=== PATIENT | male | born 1965 | race Hispanic/Latino ===

== ENCOUNTER 2024-09-17 06:32 | Day surgery (SDC) | payer BC, SELFPAY ==
[2024-09-03 10:34] VITALS: BMI 24.3
[2024-09-17] VITALS (11 sets, daily range): BP systolic 100–120; BP diastolic 54–83; BMI 24.3
--- NOTE | 2024-09-17 06:58 | HP.FOC2 ---
Focused History & Physical
Chief Complaint
HPI:
Chief Complaint: Right inguinal hernia
HPI / Indication for Planned Procedure: Patient is a 59-year-old male previously known to myself status post laparoscopic left inguinal hernia repair with mesh, open umbilical hernia repair with mesh in 2017. He has recovered well from these
operative procedures. Recently began taking note of intermittent swelling in the right inguinal region. Awareness of the hernia being present but no significant pain or discomfort. No associated GI or symptoms.
Relevant Past Medical History: Other (Prediabetic, hyperlipidemia, vitamin D deficiency)
Relevant Social History: Negative
Relevant Family History: Negative
Relevant Past Surgical History: Positive for (Cataracts, left wrist arthroplasty, laparoscopic left inguinal hernia repair with mesh/open umbilical hernia repair with mesh 2017)
Review of Systems
Review of Pertinent Systems: All Systems Negative
Medication
See Medication form for detailed medications: Yes
Medication List (including Herbals & OTC):
simvastatin 40 mg tablet 40 mg PO HS 09/10/24
Medications Reviewed: Yes
Allergies and Reactions
Patient has Allergies: No
Noted Allergies and Reactions:
Allergy/AdvReac Type Severity Reaction Status Date / Time
No Known Allergies Allergy Unverified 09/10/24 08:40
Pertinent Physical Exam
All Other Systems: Negative
Head/Neck: Normal
Lungs: Normal
Heart: Normal
Abdomen: Other (Reducible right inguinal hernia)
Extremities: Normal
Neurological: Normal
Diagnosis / Assessment
59-year-old male presenting for scheduled operative correction symptomatic right inguinal hernia
Plan / Procedure
Robotic assisted laparoscopic repair right inguinal hernia with mesh
Anesthesia/Sedation to be done by Anesthesia Provider: Yes
--- NOTE | 2024-09-17 07:00 | W.SUR.PREOP ---
Pre-Operative Surgical Note
-
I have examined this patient prior to the performance of the scheduled procedure.
The patient's condition is unchanged from the time of the current History and
Physical and the patient is able to undergo the scheduled procedure.
[2024-09-17] MEDS: TYLENOL 1000 MG PO (08:17)
[2024-09-17] MEDS: NORMOSOL-R/PLASMALYTE-A 1000 IV (08:18)
--- NOTE | 2024-09-17 10:56 | W.IMMPOSTOP ---
Surgical Immed Post Op Note
-
Primary Surgeon: Igor Cook MD
Assisting Surgeon: Marika Malik PA-C
Pre-op Diagnosis: Right inguinal hernia
Post-op Diagnosis: Right inguinal hernia -direct
Procedure Performed: RAL RUBÉN repair right inguinal hernia with mesh; 3D max large mid weight
Anesthesia Type: GETA +0.25% Marcaine with epi
Specimen / Cultures: None
Estimated Blood Loss: 6 mL
Complications: None immediate
Operative Findings: Previous umbilical herniorrhaphy and left inguinal herniorrhaphy intact and without any adhesions. Right direct inguinal hernia identified and repaired with transabdominal preperitoneal approach. 3D max large mid weight mesh
secured to Raymon's ligament with 2-0 Vicryl stitch x 2. Indirect inguinal location normal, no femoral component, no significant lipoma of cord structures. Peritoneal flap closed with 2-0 Monocryl STRATAFIX spiral. No additional incidental
findings.
The assistance of Marika Malik PA-C was required due to the complexity of the procedure. During the procedure Marika Malik PA-C assisted with port placement, robotic instrumentation and suture material exchanges, and closure of the surgical incision
sites. I was present for the entirety of the operative procedure.
--- NOTE | 2024-09-17 10:58 | OR.RPT ---
Operative Report
Operative Report
Date of operative procedure: 09/17/2024
Primary Surgeon: Igor Cook MD
Assisting Surgeon: Marika Malik PA-C
Pre-op Diagnosis: Right inguinal hernia
Post-op Diagnosis: Right inguinal hernia, direct
Procedure Performed: Robotic assisted laparoscopic RUBÉN repair right inguinal hernia with mesh; 3D max large mid weight mesh
Anesthesia Type: GETA +0.25% Marcaine
Specimen / Cultures: None/none
Estimated Blood Loss: 6 mL
Complications: None immediate
Indications for operative procedure: Patient is a 59-year-old male previously known to myself status post laparoscopic left inguinal hernia repair with mesh, open umbilical hernia repair with mesh in 2017. He has recovered well from these operative
procedures. Recently began taking note of intermittent swelling in the right inguinal region. Awareness of the hernia being present but no significant pain or discomfort. No associated GI or symptoms. After discussions with patient regarding
treatment options he wished to pursue operative correction. We discussed various operative approaches to repair and have elected to proceed with a robotic assisted laparoscopic right inguinal herniorrhaphy with mesh.
Brief summary of operative Findings: Previous umbilical herniorrhaphy and left inguinal herniorrhaphy well healed and without any adhesions. Right direct inguinal hernia identified and repaired with transabdominal preperitoneal approach. 3D max
large mid weight mesh secured to Raymon's ligament with 2-0 Vicryl stitch x 2. Indirect inguinal location normal, no femoral component, no significant lipoma of cord structures. Peritoneal flap closed with 2-0 Monocryl STRATAFIX spiral. No
additional incidental findings.
Operation detail: The patient was identified in the preoperative holding area. I confirmed the surgical site and side with the patient preoperatively which was then marked and initialed by myself. He was interviewed by the anesthesia and nursing
staff then brought back to the operating room. The patient was placed on the operating table in supine position. The bilateral upper extremities were carefully padded and tucked at the side utilizing the arm guard positioning system. Pneumatic
compression boots were on the bilateral lower extremities. Following induction of general endotracheal anesthesia the patient was administered Ancef 2 g IV for prophylactic antibiotic coverage. The patient's anterior abdominal wall was now widely
and sterilely prepped with ChloraPrep and then draped in the usual manner. The surgical timeout was completed and the procedure was confirmed.
I initially proceeded with Veress needle insufflation in the left subcostal midclavicular line location. Once insufflated to 10 mmHg pressure then a left midclavicular line 8 mm trocar was then placed. The robotic scope was inserted, there was no
evidence of iatrogenic injury from access. The Veress needle was withdrawn. An epigastric 8 mm trocar was placed just to the right side off of the midline. A right midclavicular line 8 mm trocar was placed. The patient was then transition into
Trendelenburg to expose the inguinal/pelvic space and the robot was docked.
At the surgeon console inspection of the pelvis confirmed the presence of a right direct inguinal hernia. Excellent healing and position of previously placed left inguinal mesh as well as umbilical herniorrhaphy mesh without any peritoneal
adhesions. There were no additional incidental intra-abdominal findings.
I initially began with creation of a peritoneal flap at the level of the right ASIS to the right medial umbilical ligament. The preperitoneal plane was now established along the length of the flap and developed inferiorly down to the inguinal
space. The medial dissection proceeded until the notch of the pubic symphysis was exposed at the midline followed by Raymon's ligament on the right side. Raymon's ligament was now cleared through the direct and femoral space. All of the
preperitoneal fat and peritoneum was fully reduced out of the direct hernia defect. The underside of Raymon's ligament was exposed as well. The peritoneal flap was now mobilized laterally down to the level of the right internal ring. The
peritoneal lining was now carefully grasped and dissected free from the right spermatic cord back proximally past the turn in the right vas deferens and then overlying the right iliac space to meet up with the medial dissection. The posterior
dissection continued until there was wide separation between the vas and the spermatic cord vessels. The dissection continued posterior laterally for full exposure of the myopectineal orifice. The indirect inguinal space and cord structures were
further evaluated. There was no significant lipoma of the spermatic cord or inguinal canal.
With the myopectineal orifice now completely exposed hemostasis was confirmed. A 3D max large mid weight mesh was utilized for repair. The mesh was positioned parallel to the ileopubic tract. It was secured at 2 separate locations inferior
medially on Raymon's ligament with 2 simple interrupted 2-0 Vicryl sutures. The patient was now begun to be taken out of Trendelenburg to confirm that the posterior aspect of the mesh was lying flat and that there was no shelling or undermining of
the mesh by the peritoneal edge. The peritoneal flap was now closed with a 2-0 Monocryl STRATAFIX spiral suture with a running [place] type stitch.
A flexible suction catheter was placed through an 8 mm trocar and introduced into the peritoneal flap to evacuate the air out of the preperitoneal space. This again confirmed good positioning of the inguinal hernia mesh. There was no shelling or
folding of the mesh and no undermining and mesh by the peritoneal edge. The peritoneal covering of the mesh was completely intact.
At this point the robot was undocked. All sponge instrument and needle counts were confirmed to be correct x 2. The CO2 insufflation was now carefully evacuated out of the abdominal cavity. The trocar sites were removed as well as the flexible
suction catheter. Skin was closed with 4-0 Monocryl. Sterile surgical glue dressings were applied. The patient tolerated the procedure well and was transferred to the recovery unit for routine postoperative monitoring.
The assistance of Marika Malik PA-C was required due to complexity of surgery. During the procedure Marika Malik PA-C assisted with port placement, robotic instrumentation and suture material exchanges as well as closure of the surgical sites. I
was present for the entirety of the operative procedure.
[2024-09-17] MEDS: DILAUDID 0.25 MG IV (11:36)
== END 2024-09-17 12:57 | disposition home or self-care (01) ==
LOC: SDS 06:32
PROVIDERS: ATTENDING PHYSICIAN Surgery; FAMILY PHYSICIAN Emergency Medicine
DX: K40.90 Unilateral inguinal hernia, without obstruction or gangrene, not specified as recurrent (principal)
CPT/HCPCS: 49650; 36415; 93005; C1781